=== PATIENT | female | born 1950 | race Caucasian/White ===

== ENCOUNTER 2019-11-06 15:46 | Inpatient (IN) | payer MEDICARE ==
[~2019-11-06] VITALS: Ht 165.1 cm; Wt 85.3 kg
[2019-11-06] MEDS ORDERED: ACETAMINOPHEN 325 MG TABLET PO PRN (22:30)
[2019-11-06] MEDS ORDERED: DEXTROSE 50%-WATER 25 GM/50 ML SYRINGE IVP PRN (22:30)
[2019-11-06 23:50] VITALS: BP 151/82
[2019-11-07] MEDS ORDERED: NIFE90TA49 PO (04:40)
[2019-11-07] MEDS ORDERED: TICA90TA PO (04:40)
[2019-11-07] MEDS ORDERED: FURO40 PO (04:40)
[2019-11-07] MEDS ORDERED: LISI-662 PO (04:40)
[2019-11-07] MEDS ORDERED: ISOS10TA16 PO (04:40)
[2019-11-07] MEDS ORDERED: METO25 PO (04:40)
[2019-11-07] MEDS ORDERED: METF-960 PO ×2 (04:40→16:16)
[2019-11-07] MEDS ORDERED: ATOR20TA86 PO (04:40)
[2019-11-07] MEDS: PANTOPRAZOLE SODIUM 40 MG DR TABLET PO SCH (05:23)
[2019-11-07 05:42] LABS: GLUCOMETER DEV NAME(LOC) 6N.1; GLUCOSE,POINT OF CARE 214 MG/DL (70-110)
[2019-11-07 06:50] LABS: BASOPHILS % (AUTO) 0.4 % (0.0-2.0); EOSINOPHILS % (AUTO) 0.7 % (1.0-6.0); HEMATOCRIT 36.9 % (36-46); HEMOGLOBIN 12.6 g/dL (12.0-16.0); LYMPHOCYTES # (AUTO) 1.4 K/uL (1.0-4.8); MEAN CORPUSCULAR HEMOGLOBIN 32.3 pg (26.0-34.0); MEAN CORPUSCULAR HGB CONC 34.1 G/dL (31.0-37.0); MEAN CORPUSCULAR VOLUME 95 fL (80-100); MONOCYTES # (AUTO) 0.8 K/uL (0.1-1.0); MONOCYTES % (AUTO) 9.2 % (2.0-9.0); NEUTROPHILS # (AUTO) 6.6 K/uL (1.8-7.7); NEUTROPHILS % (AUTO) 73.7 % (40.0-70.0); PLATELET COUNT (AUTO) 110 K/uL (150-450); RED CELL DISTRIBUTION WIDTH 13.2 % (11.5-14.5)
[2019-11-07 07:05] LABS: ALBUMIN 2.6 g/dL (3.4-5.0); BILIRUBIN,TOTAL 0.5 mg/dL (0.1-1.0); CREATININE 0.95 mg/dL (0.60-1.30); POTASSIUM 3.5 mmol/L (3.5-5.1); TOTAL PROTEIN, SERUM 7.5 g/dL (6.4-8.2)
[2019-11-07 09:00] VITALS: BP 162/95
[2019-11-07] MEDS: METOPROLOL TARTRATE 25 MG TABLET PO SCH ×2 (09:07→21:00)
[2019-11-07] MEDS: TICAGRELOR 90 MG TABLET PO SCH ×2 (09:07→21:02)
[2019-11-07] MEDS: DOCUSATE SODIUM 100 MG CAPSULE PO SCH ×2 (09:07→21:00)
[2019-11-07] MEDS: ISOSORBIDE MONONITRATE 60 MG ER TABLET PO SCH (09:07)
[2019-11-07] MEDS: ENOXAPARIN SODIUM 40 MG/0.4 ML PF SYRINGE SQ SCH (09:09)
[2019-11-07] MEDS: INSULIN LISPRO 100 UNITS/ML SQ PRN ×4 (09:10→21:00)
[2019-11-07 10:30] VITALS: BP 158/82
[2019-11-07 12:41] LABS: GLUCOMETER DEV NAME(LOC) 4E.2; GLUCOSE,POINT OF CARE 194 MG/DL (70-110)
[2019-11-07 13:54] LABS: C.DIFF GDH ANTIGEN, Stool Negative (Negative); C.DIFF TOXINS A&B, Stool Negative (Negative)
[2019-11-07 15:06] VITALS: BP 162/83
[2019-11-07 15:45] VITALS: BP 156/81
[2019-11-07] MEDS ORDERED: METO25XL PO (15:51)
[2019-11-07] MEDS ORDERED: ISOS60TA4 PO (15:51)
[2019-11-07] MEDS ORDERED: HydrALAZINE HCL 25 MG TABLET PO PRN (16:00)
[2019-11-07] MEDS: LISINOPRIL 20 MG TABLET PO SCH (17:12)
[2019-11-07 17:58] LABS: GLUCOMETER DEV NAME(LOC) 6N.1; GLUCOSE,POINT OF CARE 185 MG/DL (70-110)
[2019-11-07] MEDS: MetFORMIN HCL 500 MG TABLET PO SCH (18:56)
[2019-11-07 20:58] VITALS: BP 157/85
[2019-11-07] MEDS: SENNA 187 MG TABLET PO SCH (21:00)
[2019-11-07] MEDS: ATORVASTATIN CALCIUM 40 MG TABLET PO SCH (21:07)
[2019-11-07] MEDS: NYSTATIN 15 GM POWDER BOTTLE TP SCH (21:10)
[2019-11-07 21:24] LABS: GLUCOMETER DEV NAME(LOC) 6N.1; GLUCOSE,POINT OF CARE 166 MG/DL (70-110)
[2019-11-07 23:38] VITALS: BP 154/83
[2019-11-08 05:29] LABS: GLUCOMETER DEV NAME(LOC) 6N.1; GLUCOSE,POINT OF CARE 156 MG/DL (70-110)
[2019-11-08] MEDS: PANTOPRAZOLE SODIUM 40 MG DR TABLET PO SCH (05:33)
[2019-11-08] MEDS: MetFORMIN HCL 500 MG TABLET PO SCH ×2 (07:46→17:29)
[2019-11-08] MEDS: INSULIN LISPRO 100 UNITS/ML SQ PRN ×3 (07:48→21:14)
[2019-11-08 08:30] VITALS: BP 154/79
[2019-11-08] MEDS: ENOXAPARIN SODIUM 40 MG/0.4 ML PF SYRINGE SQ SCH (08:43)
[2019-11-08] MEDS: NYSTATIN 15 GM POWDER BOTTLE TP SCH ×2 (08:44→20:53)
[2019-11-08] MEDS: ISOSORBIDE MONONITRATE 60 MG ER TABLET PO SCH (08:44)
[2019-11-08] MEDS: LISINOPRIL 20 MG TABLET PO SCH (08:44)
[2019-11-08] MEDS: TICAGRELOR 90 MG TABLET PO SCH ×2 (08:44→20:53)
[2019-11-08] MEDS: METOPROLOL TARTRATE 25 MG TABLET PO SCH ×2 (08:44→20:53)
[2019-11-08] MEDS: DOCUSATE SODIUM 100 MG CAPSULE PO SCH ×2 (08:44→20:53)
[2019-11-08] MEDS ORDERED: IBUPROFEN 600 MG TABLET PO PRN (11:30)
[2019-11-08 15:46] VITALS: BP 147/63
[2019-11-08 20:32] LABS: GLUCOMETER DEV NAME(LOC) 4E.2; GLUCOSE,POINT OF CARE 190 MG/DL (70-110)
[2019-11-08] MEDS: ATORVASTATIN CALCIUM 40 MG TABLET PO SCH (20:53)
[2019-11-08] MEDS: SENNA 187 MG TABLET PO SCH (20:53)
[2019-11-08 21:00] VITALS: BP 150/73
[2019-11-08] MEDS ORDERED: NYSTATIN 15 GM POWDER BOTTLE TP SCH (21:00)
[2019-11-08 22:40] LABS: GLUCOMETER DEV NAME(LOC) 4E.2; GLUCOSE,POINT OF CARE 166 MG/DL (70-110)
[2019-11-09] VITALS: BP 132/77
[2019-11-09 05:21] LABS: GLUCOMETER DEV NAME(LOC) 6N.1; GLUCOSE,POINT OF CARE 179 MG/DL (70-110)
[2019-11-09 06:07] LABS: GLUCOMETER DEV NAME(LOC) 6N.1; GLUCOSE,POINT OF CARE 174 MG/DL (70-110)
[2019-11-09] MEDS: PANTOPRAZOLE SODIUM 40 MG DR TABLET PO SCH (06:42)
[2019-11-09 07:29] LABS: BASOPHILS % (AUTO) 0.5 % (0.0-2.0); EOSINOPHILS % (AUTO) 4.9 % (1.0-6.0); HEMATOCRIT 33.1 % (36-46); HEMOGLOBIN 11.3 g/dL (12.0-16.0); LYMPHOCYTES # (AUTO) 1.6 K/uL (1.0-4.8); LYMPHOCYTES % (AUTO) 22.1 % (22.0-44.0); MEAN CORPUSCULAR HEMOGLOBIN 32.7 pg (26.0-34.0); MEAN CORPUSCULAR HGB CONC 34.2 G/dL (31.0-37.0); MEAN CORPUSCULAR VOLUME 96 fL (80-100); MONOCYTES # (AUTO) 0.6 K/uL (0.1-1.0); MONOCYTES % (AUTO) 8.8 % (2.0-9.0); NEUTROPHILS # (AUTO) 4.5 K/uL (1.8-7.7); NEUTROPHILS % (AUTO) 63.7 % (40.0-70.0); PLATELET COUNT (AUTO) 105 K/uL (150-450); RED BLOOD CELL COUNT(AUTO) 3.46 MIL/uL (4.00-5.20); RED CELL DISTRIBUTION WIDTH 13.8 % (11.5-14.5)
[2019-11-09 07:30] VITALS: BP 137/72
[2019-11-09 07:43] LABS: CALCIUM, TOTAL 9.2 mg/dL (8.8-10.5); CREATININE 1.02 mg/dL (0.60-1.30); POTASSIUM 3.7 mmol/L (3.5-5.1)
[2019-11-09] MEDS: INSULIN LISPRO 100 UNITS/ML SQ PRN ×3 (07:47→20:37)
[2019-11-09 08:38] VITALS: BP 140/79
[2019-11-09] MEDS: NYSTATIN 15 GM POWDER BOTTLE TP SCH ×2 (08:38→20:34)
[2019-11-09] MEDS: METOPROLOL TARTRATE 25 MG TABLET PO SCH ×2 (08:38→20:34)
[2019-11-09] MEDS: ENOXAPARIN SODIUM 40 MG/0.4 ML PF SYRINGE SQ SCH (08:39)
[2019-11-09] MEDS: LISINOPRIL 20 MG TABLET PO SCH (08:39)
[2019-11-09] MEDS: ISOSORBIDE MONONITRATE 60 MG ER TABLET PO SCH (08:39)
[2019-11-09] MEDS: DOCUSATE SODIUM 100 MG CAPSULE PO SCH ×2 (08:39→20:34)
[2019-11-09] MEDS: MetFORMIN HCL 500 MG TABLET PO SCH ×2 (08:39→17:50)
[2019-11-09] MEDS: TICAGRELOR 90 MG TABLET PO SCH ×2 (08:39→20:34)
[2019-11-09 15:00] VITALS: BP 147/75
[2019-11-09 18:27] LABS: GLUCOMETER DEV NAME(LOC) 4E.2; GLUCOSE,POINT OF CARE 139 MG/DL (70-110)
[2019-11-09 20:00] VITALS: BP 137/85
[2019-11-09] MEDS: SENNA 187 MG TABLET PO SCH (20:34)
[2019-11-09] MEDS: ATORVASTATIN CALCIUM 40 MG TABLET PO SCH (20:34)
[2019-11-09 21:00] LABS: GLUCOMETER DEV NAME(LOC) 6N.1; GLUCOSE,POINT OF CARE 181 MG/DL (70-110)
[2019-11-09 21:01] LABS: GLUCOMETER DEV NAME(LOC) 6N.1; GLUCOSE,POINT OF CARE 172 MG/DL (70-110)
[2019-11-10] MEDS ORDERED: DOCUSATE SODIUM 283 MG/5 ML MINI-ENEMA PR PRN (01:30)
[2019-11-10] MEDS: PANTOPRAZOLE SODIUM 40 MG DR TABLET PO SCH (06:24)
[2019-11-10 06:25] LABS: GLUCOMETER DEV NAME(LOC) 4E.2; GLUCOSE,POINT OF CARE 176 MG/DL (70-110)
[2019-11-10 07:10] VITALS: BP 157/90
[2019-11-10] MEDS: MetFORMIN HCL 500 MG TABLET PO SCH ×2 (08:08→17:37)
[2019-11-10] MEDS: METOPROLOL TARTRATE 25 MG TABLET PO SCH ×2 (08:08→20:33)
[2019-11-10] MEDS: ISOSORBIDE MONONITRATE 60 MG ER TABLET PO SCH (08:08)
[2019-11-10] MEDS: LISINOPRIL 20 MG TABLET PO SCH (08:08)
[2019-11-10] MEDS: ENOXAPARIN SODIUM 40 MG/0.4 ML PF SYRINGE SQ SCH (08:09)
[2019-11-10] MEDS: DOCUSATE SODIUM 100 MG CAPSULE PO SCH ×2 (08:09→20:33)
[2019-11-10] MEDS: TICAGRELOR 90 MG TABLET PO SCH ×2 (08:09→20:33)
[2019-11-10] MEDS: NYSTATIN 15 GM POWDER BOTTLE TP SCH ×2 (08:10→20:57)
[2019-11-10 09:20] LABS: ANION GAP 11 mmol/L (8-16); CALCIUM, TOTAL 9.4 mg/dL (8.8-10.5); CARBON DIOXIDE 23 mmol/L (22-29); CHLORIDE 107 mmol/L (98-107); CREATININE 0.82 mg/dL (0.60-1.30); GLOMERULAR FILTR. RATE CALC > 60 mL/min (>60); GLUCOSE,RANDOM 165 mg/dL (70-110); POTASSIUM 3.8 mmol/L (3.5-5.1); SODIUM SERUM 141 mmol/L (136-145); UREA NITROGEN, BLOOD 33 mg/dL (7-18)
[2019-11-10] MEDS: INSULIN LISPRO 100 UNITS/ML SQ PRN ×4 (09:37→21:49)
[2019-11-10 12:20] VITALS: BP 147/91
[2019-11-10 12:55] LABS: GLUCOMETER DEV NAME(LOC) 4E.2; GLUCOSE,POINT OF CARE 141 MG/DL (70-110)
[2019-11-10 15:10] VITALS: BP 136/78
[2019-11-10 17:18] LABS: GLUCOMETER DEV NAME(LOC) 6N.1; GLUCOSE,POINT OF CARE 146 MG/DL (70-110)
[2019-11-10 20:30] VITALS: BP 148/72
[2019-11-10] MEDS: SENNA 187 MG TABLET PO SCH (20:33)
[2019-11-10] MEDS: ATORVASTATIN CALCIUM 40 MG TABLET PO SCH (20:33)
[2019-11-10 22:03] LABS: GLUCOMETER DEV NAME(LOC) 4E.2; GLUCOSE,POINT OF CARE 170 MG/DL (70-110)
[2019-11-10 22:05] VITALS: BP 143/74
[2019-11-11 00:37] VITALS: BP 150/71
[2019-11-11] MEDS: PANTOPRAZOLE SODIUM 40 MG DR TABLET PO SCH (05:26)
[2019-11-11 06:36] LABS: GLUCOMETER DEV NAME(LOC) 4E.2; GLUCOSE,POINT OF CARE 175 MG/DL (70-110)
[2019-11-11 07:21] VITALS: BP 139/69
[2019-11-11] MEDS: MetFORMIN HCL 500 MG TABLET PO SCH (07:59)
[2019-11-11] MEDS: TICAGRELOR 90 MG TABLET PO SCH ×2 (08:00→20:32)
[2019-11-11] MEDS: METOPROLOL TARTRATE 25 MG TABLET PO SCH ×2 (08:00→20:32)
[2019-11-11] MEDS: ENOXAPARIN SODIUM 40 MG/0.4 ML PF SYRINGE SQ SCH (08:00)
[2019-11-11] MEDS: LISINOPRIL 20 MG TABLET PO SCH (08:01)
[2019-11-11] MEDS: ISOSORBIDE MONONITRATE 60 MG ER TABLET PO SCH (08:01)
[2019-11-11] MEDS: DOCUSATE SODIUM 100 MG CAPSULE PO SCH (08:01)
[2019-11-11] MEDS: INSULIN LISPRO 100 UNITS/ML SQ PRN (08:07)
[2019-11-11] MEDS: NYSTATIN 15 GM POWDER BOTTLE TP SCH ×2 (08:08→20:33)
[2019-11-11 14:28] LABS: BASOPHILS % (AUTO) 0.6 % (0.0-2.0); EOSINOPHILS % (AUTO) 3.5 % (1.0-6.0); HEMATOCRIT 32.6 % (36-46); HEMOGLOBIN 10.9 g/dL (12.0-16.0); LYMPHOCYTES # (AUTO) 1.1 K/uL (1.0-4.8); MEAN CORPUSCULAR HEMOGLOBIN 31.7 pg (26.0-34.0); MEAN CORPUSCULAR HGB CONC 33.4 G/dL (31.0-37.0); MEAN CORPUSCULAR VOLUME 95 fL (80-100); MONOCYTES # (AUTO) 0.7 K/uL (0.1-1.0); MONOCYTES % (AUTO) 9.5 % (2.0-9.0); NEUTROPHILS # (AUTO) 5.3 K/uL (1.8-7.7); NEUTROPHILS % (AUTO) 71.4 % (40.0-70.0); PLATELET COUNT (AUTO) 122 K/uL (150-450); RED BLOOD CELL COUNT(AUTO) 3.43 MIL/uL (4.00-5.20); RED CELL DISTRIBUTION WIDTH 13.4 % (11.5-14.5)
[2019-11-11 15:01] LABS: CALCIUM, TOTAL 9.1 mg/dL (8.8-10.5); CREATININE 0.97 mg/dL (0.60-1.30); POTASSIUM 4.1 mmol/L (3.5-5.1)
[2019-11-11 15:03] LABS: GLUCOMETER DEV NAME(LOC) 6N.1; GLUCOSE,POINT OF CARE 126 MG/DL (70-110)
[2019-11-11 15:04] LABS: MAGNESIUM 1.5 mg/dL (1.80-2.40); PHOSPHORUS 3.1 mg/dL (2.5-4.9)
[2019-11-11 15:23] VITALS: BP 151/69
[2019-11-11 17:47] LABS: GLUCOMETER DEV NAME(LOC) 4E.2; GLUCOSE,POINT OF CARE 139 MG/DL (70-110)
[2019-11-11] MEDS: MetFORMIN HCL 850 MG TABLET PO SCH (17:58)
[2019-11-11] MEDS ORDERED: MAGNESIUM OXIDE 400 MG TABLET PO ONE (19:45)
[2019-11-11 20:30] VITALS: BP 138/69
[2019-11-11] MEDS: ATORVASTATIN CALCIUM 40 MG TABLET PO SCH (20:32)
[2019-11-11 21:07] LABS: GLUCOMETER DEV NAME(LOC) 4E.2; GLUCOSE,POINT OF CARE 139 MG/DL (70-110)
[2019-11-11 21:45] VITALS: BP 139/74
[2019-11-11 23:50] VITALS: BP 114/69
[2019-11-12] MEDS: PANTOPRAZOLE SODIUM 40 MG DR TABLET PO SCH (06:05)
[2019-11-12 06:30] LABS: GLUCOMETER DEV NAME(LOC) 6N.1; GLUCOSE,POINT OF CARE 139 MG/DL (70-110)
[2019-11-12 07:30] VITALS: BP 132/62
[2019-11-12 07:32] LABS: ANION GAP 13 mmol/L (8-16); CALCIUM, TOTAL 9.1 mg/dL (8.8-10.5); CARBON DIOXIDE 22 mmol/L (22-29); CHLORIDE 105 mmol/L (98-107); GLOMERULAR FILTR. RATE CALC > 60 mL/min (>60); GLUCOSE,RANDOM 126 mg/dL (70-110); POTASSIUM 3.8 mmol/L (3.5-5.1); SODIUM SERUM 140 mmol/L (136-145); UREA NITROGEN, BLOOD 29 mg/dL (7-18)
[2019-11-12] MEDS: MetFORMIN HCL 850 MG TABLET PO SCH ×2 (08:30→17:37)
[2019-11-12] MEDS: MULTIVITAMINS WITH MINERALS, THERAPEUTIC TABLET PO SCH (08:35)
[2019-11-12] MEDS: MAGNESIUM OXIDE 400 MG TABLET PO SCH ×2 (08:35→20:02)
[2019-11-12] MEDS: METOPROLOL TARTRATE 25 MG TABLET PO SCH ×2 (08:35→20:02)
[2019-11-12] MEDS: TICAGRELOR 90 MG TABLET PO SCH ×2 (08:35→20:01)
[2019-11-12] MEDS: ISOSORBIDE MONONITRATE 60 MG ER TABLET PO SCH ×2 (08:35→09:33)
[2019-11-12] MEDS: LISINOPRIL 20 MG TABLET PO SCH (08:35)
[2019-11-12 09:30] VITALS: BP 139/66
[2019-11-12] MEDS: NYSTATIN 15 GM POWDER BOTTLE TP SCH ×2 (09:34→20:02)
[2019-11-12] MEDS: ENOXAPARIN SODIUM 40 MG/0.4 ML PF SYRINGE SQ SCH (09:34)
[2019-11-12 13:00] VITALS: BP 130/67
[2019-11-12 14:45] LABS: GLUCOMETER DEV NAME(LOC) 4E.2; GLUCOSE,POINT OF CARE 134 MG/DL (70-110)
[2019-11-12 15:17] VITALS: BP 125/55
[2019-11-12] MEDS: INSULIN LISPRO 100 UNITS/ML SQ PRN (18:02)
[2019-11-12 18:45] LABS: GLUCOMETER DEV NAME(LOC) 4E.2; GLUCOSE,POINT OF CARE 148 MG/DL (70-110)
[2019-11-12] MEDS: ATORVASTATIN CALCIUM 40 MG TABLET PO SCH (20:01)
[2019-11-12 20:31] LABS: GLUCOMETER DEV NAME(LOC) 6N.1; GLUCOSE,POINT OF CARE 138 MG/DL (70-110)
[2019-11-12 23:26] VITALS: BP 139/70
[2019-11-13] MEDS: PANTOPRAZOLE SODIUM 40 MG DR TABLET PO SCH (05:23)
[2019-11-13 05:35] LABS: GLUCOMETER DEV NAME(LOC) 4E.2; GLUCOSE,POINT OF CARE 151 MG/DL (70-110)
[2019-11-13 07:16] VITALS: BP 135/62
[2019-11-13] MEDS: INSULIN LISPRO 100 UNITS/ML SQ PRN ×3 (07:42→20:45)
[2019-11-13] MEDS: MetFORMIN HCL 850 MG TABLET PO SCH ×2 (08:17→17:41)
[2019-11-13 11:47] LABS: GLUCOMETER DEV NAME(LOC) 4E.2; GLUCOSE,POINT OF CARE 129 MG/DL (70-110)
[2019-11-13] MEDS: TICAGRELOR 90 MG TABLET PO SCH ×2 (11:48→20:31)
[2019-11-13] MEDS: ISOSORBIDE MONONITRATE 60 MG ER TABLET PO SCH (11:48)
[2019-11-13] MEDS: METOPROLOL TARTRATE 25 MG TABLET PO SCH ×2 (11:48→20:31)
[2019-11-13] MEDS: MULTIVITAMINS WITH MINERALS, THERAPEUTIC TABLET PO SCH (11:48)
[2019-11-13] MEDS: LISINOPRIL 20 MG TABLET PO SCH (11:48)
[2019-11-13] MEDS: NYSTATIN 15 GM POWDER BOTTLE TP SCH ×2 (11:48→20:31)
[2019-11-13] MEDS: ENOXAPARIN SODIUM 40 MG/0.4 ML PF SYRINGE SQ SCH (11:48)
[2019-11-13] MEDS: MAGNESIUM OXIDE 400 MG TABLET PO SCH ×2 (11:48→20:31)
[2019-11-13] MEDS: LACTOBAC ACID/BULG/BIFID/THERM TABLET PO SCH ×2 (13:21→20:31)
[2019-11-13 15:08] VITALS: BP 127/66
[2019-11-13 17:57] LABS: GLUCOMETER DEV NAME(LOC) 4E.2; GLUCOSE,POINT OF CARE 146 MG/DL (70-110)
[2019-11-13] MEDS: ATORVASTATIN CALCIUM 40 MG TABLET PO SCH (20:31)
[2019-11-13] MEDS: FAMOTIDINE 20 MG TABLET PO SCH (20:31)
[2019-11-13 23:13] VITALS: BP 142/72
[2019-11-14 04:58] LABS: GLUCOMETER DEV NAME(LOC) 6N.1; GLUCOSE,POINT OF CARE 148 MG/DL (70-110)
[2019-11-14 06:47] LABS: GLUCOMETER DEV NAME(LOC) 4E.2; GLUCOSE,POINT OF CARE 123 MG/DL (70-110)
[2019-11-14 07:02] VITALS: BP 141/71
[2019-11-14 07:29] LABS: ANION GAP 8 mmol/L (8-16); CALCIUM, TOTAL 9.1 mg/dL (8.8-10.5); CARBON DIOXIDE 24 mmol/L (22-29); CHLORIDE 108 mmol/L (98-107); CREATININE 0.77 mg/dL (0.60-1.30); GLOMERULAR FILTR. RATE CALC > 60 mL/min (>60); GLUCOSE,RANDOM 134 mg/dL (70-110); POTASSIUM 4.2 mmol/L (3.5-5.1); SODIUM SERUM 140 mmol/L (136-145); UREA NITROGEN, BLOOD 29 mg/dL (7-18)
[2019-11-14] MEDS: LACTOBAC ACID/BULG/BIFID/THERM TABLET PO SCH ×2 (07:42→20:13)
[2019-11-14] MEDS: ENOXAPARIN SODIUM 40 MG/0.4 ML PF SYRINGE SQ SCH (07:42)
[2019-11-14] MEDS: TICAGRELOR 90 MG TABLET PO SCH ×2 (07:43→20:13)
[2019-11-14] MEDS: METOPROLOL TARTRATE 25 MG TABLET PO SCH ×2 (07:43→20:14)
[2019-11-14] MEDS: MAGNESIUM OXIDE 400 MG TABLET PO SCH ×2 (07:43→20:14)
[2019-11-14] MEDS: MULTIVITAMINS WITH MINERALS, THERAPEUTIC TABLET PO SCH (07:43)
[2019-11-14] MEDS: MetFORMIN HCL 850 MG TABLET PO SCH (07:43)
[2019-11-14] MEDS: LISINOPRIL 20 MG TABLET PO SCH (07:43)
[2019-11-14] MEDS: FAMOTIDINE 20 MG TABLET PO SCH ×2 (07:43→20:13)
[2019-11-14] MEDS: ISOSORBIDE MONONITRATE 60 MG ER TABLET PO SCH (07:44)
[2019-11-14] MEDS: NYSTATIN 15 GM POWDER BOTTLE TP SCH ×2 (07:44→20:14)
[2019-11-14] MEDS: SitaGLIPtin PHOSPHATE 50 MG TABLET PO SCH (12:54)
[2019-11-14 15:38] VITALS: BP 123/60
[2019-11-14 17:16] LABS: C.DIFF GDH ANTIGEN, Stool Negative (Negative); C.DIFF TOXINS A&B, Stool Negative (Negative)
[2019-11-14 17:46] LABS: GLUCOMETER DEV NAME(LOC) 4E.2; GLUCOSE,POINT OF CARE 88 MG/DL (70-110)
[2019-11-14] MEDS: ATORVASTATIN CALCIUM 40 MG TABLET PO SCH (20:13)
[2019-11-14 21:28] LABS: GLUCOMETER DEV NAME(LOC) 4E.2; GLUCOSE,POINT OF CARE 139 MG/DL (70-110)
[2019-11-14 23:34] VITALS: BP 131/59
[2019-11-15 05:56] LABS: GLUCOMETER DEV NAME(LOC) 4E.2; GLUCOSE,POINT OF CARE 119 MG/DL (70-110)
[2019-11-15 07:10] VITALS: BP 122/74
[2019-11-15] MEDS: FAMOTIDINE 20 MG TABLET PO SCH ×2 (07:54→20:39)
[2019-11-15] MEDS: ISOSORBIDE MONONITRATE 60 MG ER TABLET PO SCH (07:54)
[2019-11-15] MEDS: LACTOBAC ACID/BULG/BIFID/THERM TABLET PO SCH ×2 (07:54→20:39)
[2019-11-15] MEDS: ENOXAPARIN SODIUM 40 MG/0.4 ML PF SYRINGE SQ SCH (07:54)
[2019-11-15] MEDS: SitaGLIPtin PHOSPHATE 50 MG TABLET PO SCH (07:54)
[2019-11-15] MEDS: NYSTATIN 15 GM POWDER BOTTLE TP SCH ×2 (07:55→20:52)
[2019-11-15] MEDS: TICAGRELOR 90 MG TABLET PO SCH ×2 (07:55→20:39)
[2019-11-15] MEDS: MULTIVITAMINS WITH MINERALS, THERAPEUTIC TABLET PO SCH (07:55)
[2019-11-15] MEDS: LISINOPRIL 20 MG TABLET PO SCH (07:55)
[2019-11-15] MEDS: MAGNESIUM OXIDE 400 MG TABLET PO SCH (07:55)
[2019-11-15] MEDS: METOPROLOL TARTRATE 25 MG TABLET PO SCH ×2 (07:55→20:39)
[2019-11-15] MEDS: PSYLLIUM SEED ORANGE SF 5.8 GM/PACKET PO SCH ×2 (09:34→09:45)
[2019-11-15 12:14] LABS: GLUCOMETER DEV NAME(LOC) 4E.2; GLUCOSE,POINT OF CARE 135 MG/DL (70-110)
[2019-11-15 16:00] VITALS: BP 131/89
[2019-11-15 17:57] LABS: GLUCOMETER DEV NAME(LOC) 4E.2; GLUCOSE,POINT OF CARE 118 MG/DL (70-110)
[2019-11-15] MEDS: MAGNESIUM CHLORIDE 64 MG ER TABLET PO SCH (20:39)
[2019-11-15] MEDS: ATORVASTATIN CALCIUM 40 MG TABLET PO SCH (20:39)
[2019-11-15 20:40] VITALS: BP 126/54
[2019-11-15 21:57] LABS: GLUCOMETER DEV NAME(LOC) 4E.2; GLUCOSE,POINT OF CARE 131 MG/DL (70-110)
[2019-11-16] VITALS: BP 146/69
[2019-11-16 06:26] LABS: GLUCOMETER DEV NAME(LOC) 4E.2; GLUCOSE,POINT OF CARE 127 MG/DL (70-110)
[2019-11-16 08:00] VITALS: BP 149/67
[2019-11-16] MEDS: SitaGLIPtin PHOSPHATE 50 MG TABLET PO SCH (08:16)
[2019-11-16] MEDS: MAGNESIUM CHLORIDE 64 MG ER TABLET PO SCH ×2 (08:16→20:50)
[2019-11-16] MEDS: ENOXAPARIN SODIUM 40 MG/0.4 ML PF SYRINGE SQ SCH (08:16)
[2019-11-16] MEDS: PSYLLIUM SEED ORANGE SF 5.8 GM/PACKET PO SCH ×2 (08:16)
[2019-11-16] MEDS: FAMOTIDINE 20 MG TABLET PO SCH ×2 (08:16→20:51)
[2019-11-16] MEDS: MULTIVITAMINS WITH MINERALS, THERAPEUTIC TABLET PO SCH (08:17)
[2019-11-16] MEDS: LISINOPRIL 20 MG TABLET PO SCH (08:17)
[2019-11-16] MEDS: TICAGRELOR 90 MG TABLET PO SCH ×2 (08:17→20:51)
[2019-11-16] MEDS: METOPROLOL TARTRATE 25 MG TABLET PO SCH ×2 (08:17→20:51)
[2019-11-16] MEDS: LACTOBAC ACID/BULG/BIFID/THERM TABLET PO SCH ×2 (08:17→20:50)
[2019-11-16] MEDS: ISOSORBIDE MONONITRATE 60 MG ER TABLET PO SCH (08:17)
[2019-11-16] MEDS: NYSTATIN 15 GM POWDER BOTTLE TP SCH ×2 (08:18→20:56)
[2019-11-16 13:50] LABS: GLUCOMETER DEV NAME(LOC) 4E.2; GLUCOSE,POINT OF CARE 117 MG/DL (70-110)
[2019-11-16 16:30] VITALS: BP 132/63
[2019-11-16 18:23] LABS: GLUCOMETER DEV NAME(LOC) 4E.2; GLUCOSE,POINT OF CARE 116 MG/DL (70-110)
[2019-11-16 20:30] VITALS: BP 154/65
[2019-11-16] MEDS: SENNA 187 MG TABLET PO PRN (20:50)
[2019-11-16] MEDS: DOCUSATE SODIUM 100 MG CAPSULE PO PRN (20:51)
[2019-11-16] MEDS: ATORVASTATIN CALCIUM 40 MG TABLET PO SCH (21:31)
[2019-11-16 21:33] LABS: GLUCOMETER DEV NAME(LOC) 4E.2; GLUCOSE,POINT OF CARE 126 MG/DL (70-110)
[2019-11-16 23:13] VITALS: BP 139/60
[2019-11-17 05:34] LABS: GLUCOMETER DEV NAME(LOC) 6N.1; GLUCOSE,POINT OF CARE 122 MG/DL (70-110)
[2019-11-17 07:20] LABS: BASOPHILS % (AUTO) 0.9 % (0.0-2.0); EOSINOPHILS % (AUTO) 4.5 % (1.0-6.0); HEMATOCRIT 31.3 % (36-46); HEMOGLOBIN 10.3 g/dL (12.0-16.0); LYMPHOCYTES # (AUTO) 1.3 K/uL (1.0-4.8); LYMPHOCYTES % (AUTO) 21.2 % (22.0-44.0); MEAN CORPUSCULAR HEMOGLOBIN 31.3 pg (26.0-34.0); MEAN CORPUSCULAR HGB CONC 32.9 G/dL (31.0-37.0); MEAN CORPUSCULAR VOLUME 95 fL (80-100); MONOCYTES # (AUTO) 0.6 K/uL (0.1-1.0); MONOCYTES % (AUTO) 9.5 % (2.0-9.0); NEUTROPHILS % (AUTO) 63.9 % (40.0-70.0); PLATELET COUNT (AUTO) 132 K/uL (150-450); RED BLOOD CELL COUNT(AUTO) 3.29 MIL/uL (4.00-5.20); RED CELL DISTRIBUTION WIDTH 13.2 % (11.5-14.5)
[2019-11-17 07:50] LABS: ANION GAP 9 mmol/L (8-16); CARBON DIOXIDE 25 mmol/L (22-29); CHLORIDE 108 mmol/L (98-107); CREATININE 0.72 mg/dL (0.60-1.30); GLOMERULAR FILTR. RATE CALC > 60 mL/min (>60); GLUCOSE,RANDOM 131 mg/dL (70-110); POTASSIUM 3.9 mmol/L (3.5-5.1); SODIUM SERUM 142 mmol/L (136-145); UREA NITROGEN, BLOOD 23 mg/dL (7-18)
[2019-11-17] MEDS: ENOXAPARIN SODIUM 40 MG/0.4 ML PF SYRINGE SQ SCH (08:29)
[2019-11-17] MEDS: FAMOTIDINE 20 MG TABLET PO SCH ×2 (08:29→21:20)
[2019-11-17 08:30] VITALS: BP 153/61
[2019-11-17] MEDS: LISINOPRIL 20 MG TABLET PO SCH (08:30)
[2019-11-17] MEDS: MAGNESIUM CHLORIDE 64 MG ER TABLET PO SCH ×2 (08:30→21:20)
[2019-11-17] MEDS: MULTIVITAMINS WITH MINERALS, THERAPEUTIC TABLET PO SCH (08:30)
[2019-11-17] MEDS: LACTOBAC ACID/BULG/BIFID/THERM TABLET PO SCH ×2 (08:30→21:21)
[2019-11-17] MEDS: SitaGLIPtin PHOSPHATE 50 MG TABLET PO SCH (08:30)
[2019-11-17] MEDS: ISOSORBIDE MONONITRATE 60 MG ER TABLET PO SCH (08:31)
[2019-11-17] MEDS: PSYLLIUM SEED ORANGE SF 5.8 GM/PACKET PO SCH (08:31)
[2019-11-17] MEDS: METOPROLOL TARTRATE 25 MG TABLET PO SCH ×2 (08:31→21:20)
[2019-11-17] MEDS: TICAGRELOR 90 MG TABLET PO SCH ×2 (08:31→21:21)
[2019-11-17] MEDS: NYSTATIN 15 GM POWDER BOTTLE TP SCH ×2 (08:32→21:20)
[2019-11-17 12:19] LABS: GLUCOMETER DEV NAME(LOC) 6N.1; GLUCOSE,POINT OF CARE 138 MG/DL (70-110)
[2019-11-17 15:50] VITALS: BP 135/55
[2019-11-17 18:01] LABS: GLUCOMETER DEV NAME(LOC) 4E.2; GLUCOSE,POINT OF CARE 127 MG/DL (70-110)
[2019-11-17] MEDS: ATORVASTATIN CALCIUM 40 MG TABLET PO SCH (21:20)
[2019-11-17 21:24] LABS: GLUCOMETER DEV NAME(LOC) 4E.2; GLUCOSE,POINT OF CARE 188 MG/DL (70-110)
[2019-11-17] MEDS: INSULIN LISPRO 100 UNITS/ML SQ PRN (21:24)
[2019-11-17 23:30] VITALS: BP 158/61
[2019-11-18 06:04] LABS: GLUCOMETER DEV NAME(LOC) 6N.1; GLUCOSE,POINT OF CARE 121 MG/DL (70-110)
[2019-11-18 07:40] VITALS: BP 157/61
[2019-11-18] MEDS: ENOXAPARIN SODIUM 40 MG/0.4 ML PF SYRINGE SQ SCH (09:16)
[2019-11-18] MEDS: PSYLLIUM SEED ORANGE SF 5.8 GM/PACKET PO SCH (09:16)
[2019-11-18] MEDS: FAMOTIDINE 20 MG TABLET PO SCH ×2 (09:16→20:43)
[2019-11-18] MEDS: LACTOBAC ACID/BULG/BIFID/THERM TABLET PO SCH ×2 (09:16→20:44)
[2019-11-18] MEDS: TICAGRELOR 90 MG TABLET PO SCH ×2 (09:17→20:44)
[2019-11-18] MEDS: MULTIVITAMINS WITH MINERALS, THERAPEUTIC TABLET PO SCH (09:17)
[2019-11-18] MEDS: SitaGLIPtin PHOSPHATE 50 MG TABLET PO SCH (09:17)
[2019-11-18] MEDS: NYSTATIN 15 GM POWDER BOTTLE TP SCH ×2 (09:17→20:44)
[2019-11-18] MEDS: MAGNESIUM CHLORIDE 64 MG ER TABLET PO SCH ×2 (09:17→20:43)
[2019-11-18] MEDS: ISOSORBIDE MONONITRATE 60 MG ER TABLET PO SCH (09:17)
[2019-11-18] MEDS: METOPROLOL TARTRATE 25 MG TABLET PO SCH ×2 (09:17→20:43)
[2019-11-18] MEDS: LISINOPRIL 20 MG TABLET PO SCH (09:17)
[2019-11-18 12:01] LABS: GLUCOMETER DEV NAME(LOC) 6N.1; GLUCOSE,POINT OF CARE 129 MG/DL (70-110)
[2019-11-18 15:14] VITALS: BP 146/72
[2019-11-18 17:09] LABS: GLUCOMETER DEV NAME(LOC) 6N.1; GLUCOSE,POINT OF CARE 127 MG/DL (70-110)
[2019-11-18] MEDS: DOCUSATE SODIUM 100 MG CAPSULE PO PRN (20:43)
[2019-11-18] MEDS: SENNA 187 MG TABLET PO PRN (20:43)
[2019-11-18] MEDS: ATORVASTATIN CALCIUM 40 MG TABLET PO SCH (20:55)
[2019-11-18 21:00] VITALS: BP 155/64
[2019-11-18] MEDS: INSULIN LISPRO 100 UNITS/ML SQ PRN (22:09)
[2019-11-18 23:16] VITALS: BP 150/65
[2019-11-18 23:34] LABS: GLUCOMETER DEV NAME(LOC) 6N.1; GLUCOSE,POINT OF CARE 144 MG/DL (70-110)
[2019-11-19 06:07] LABS: GLUCOMETER DEV NAME(LOC) 4E.2; GLUCOSE,POINT OF CARE 135 MG/DL (70-110)
[2019-11-19 07:15] VITALS: BP 148/69
[2019-11-19] MEDS: LACTOBAC ACID/BULG/BIFID/THERM TABLET PO SCH ×2 (08:12→20:34)
[2019-11-19] MEDS: MAGNESIUM CHLORIDE 64 MG ER TABLET PO SCH ×2 (08:13→20:35)
[2019-11-19] MEDS: ISOSORBIDE MONONITRATE 60 MG ER TABLET PO SCH (08:14)
[2019-11-19] MEDS: SitaGLIPtin PHOSPHATE 50 MG TABLET PO SCH (08:14)
[2019-11-19] MEDS: MULTIVITAMINS WITH MINERALS, THERAPEUTIC TABLET PO SCH (08:15)
[2019-11-19] MEDS: FAMOTIDINE 20 MG TABLET PO SCH ×2 (08:15→20:34)
[2019-11-19] MEDS: LISINOPRIL 20 MG TABLET PO SCH (08:15)
[2019-11-19] MEDS: METOPROLOL TARTRATE 25 MG TABLET PO SCH ×2 (08:15→20:35)
[2019-11-19] MEDS: PSYLLIUM SEED ORANGE SF 5.8 GM/PACKET PO SCH (08:15)
[2019-11-19] MEDS: TICAGRELOR 90 MG TABLET PO SCH ×2 (08:16→20:35)
[2019-11-19] MEDS: ENOXAPARIN SODIUM 40 MG/0.4 ML PF SYRINGE SQ SCH (08:16)
[2019-11-19] MEDS: NYSTATIN 15 GM POWDER BOTTLE TP SCH ×2 (08:16→20:36)
[2019-11-19 15:44] LABS: GLUCOMETER DEV NAME(LOC) 6N.1; GLUCOSE,POINT OF CARE 148 MG/DL (70-110)
[2019-11-19 16:06] VITALS: BP 148/72
[2019-11-19 20:24] LABS: GLUCOMETER DEV NAME(LOC) 6N.1; GLUCOSE,POINT OF CARE 117 MG/DL (70-110)
[2019-11-19] MEDS: ATORVASTATIN CALCIUM 40 MG TABLET PO SCH (20:34)
[2019-11-19 23:23] LABS: GLUCOMETER DEV NAME(LOC) 6N.1; GLUCOSE,POINT OF CARE 140 MG/DL (70-110)
[2019-11-20 00:53] VITALS: BP 141/64
[2019-11-20 06:15] LABS: GLUCOMETER DEV NAME(LOC) 6N.1; GLUCOSE,POINT OF CARE 146 MG/DL (70-110)
[2019-11-20 07:28] VITALS: BP 158/76
[2019-11-20] MEDS: NYSTATIN 15 GM POWDER BOTTLE TP SCH ×2 (09:00→20:49)
[2019-11-20] MEDS: FAMOTIDINE 20 MG TABLET PO SCH ×2 (10:17→20:48)
[2019-11-20] MEDS: MAGNESIUM CHLORIDE 64 MG ER TABLET PO SCH ×2 (10:17→20:48)
[2019-11-20] MEDS: SitaGLIPtin PHOSPHATE 50 MG TABLET PO SCH (10:18)
[2019-11-20] MEDS: METOPROLOL TARTRATE 25 MG TABLET PO SCH ×2 (10:18→20:48)
[2019-11-20] MEDS: ISOSORBIDE MONONITRATE 60 MG ER TABLET PO SCH (10:18)
[2019-11-20] MEDS: TICAGRELOR 90 MG TABLET PO SCH ×2 (10:18→20:48)
[2019-11-20] MEDS: LACTOBAC ACID/BULG/BIFID/THERM TABLET PO SCH ×2 (10:18→20:48)
[2019-11-20] MEDS: PSYLLIUM SEED ORANGE SF 5.8 GM/PACKET PO SCH (10:18)
[2019-11-20] MEDS: LISINOPRIL 20 MG TABLET PO SCH (10:18)
[2019-11-20] MEDS: MULTIVITAMINS WITH MINERALS, THERAPEUTIC TABLET PO SCH (10:18)
[2019-11-20] MEDS: ENOXAPARIN SODIUM 40 MG/0.4 ML PF SYRINGE SQ SCH (10:19)
[2019-11-20] MEDS: INSULIN LISPRO 100 UNITS/ML SQ PRN ×2 (10:39→20:55)
[2019-11-20 12:42] LABS: GLUCOMETER DEV NAME(LOC) 4E.2; GLUCOSE,POINT OF CARE 131 MG/DL (70-110)
[2019-11-20 15:42] VITALS: BP 145/87
[2019-11-20 18:14] LABS: GLUCOMETER DEV NAME(LOC) 4E.2; GLUCOSE,POINT OF CARE 102 MG/DL (70-110)
[2019-11-20 20:10] VITALS: BP 150/70
[2019-11-20] MEDS: ATORVASTATIN CALCIUM 40 MG TABLET PO SCH (20:58)
[2019-11-20 21:17] LABS: GLUCOMETER DEV NAME(LOC) 4E.2; GLUCOSE,POINT OF CARE 193 MG/DL (70-110)
[2019-11-21 05:00] VITALS: BP 127/61
[2019-11-21 05:46] LABS: GLUCOMETER DEV NAME(LOC) 6N.1; GLUCOSE,POINT OF CARE 144 MG/DL (70-110)
[2019-11-21 08:00] VITALS: BP 126/63
[2019-11-21] MEDS: ENOXAPARIN SODIUM 40 MG/0.4 ML PF SYRINGE SQ SCH ×2 (08:08→08:15)
[2019-11-21] MEDS: LACTOBAC ACID/BULG/BIFID/THERM TABLET PO SCH ×2 (08:09→20:24)
[2019-11-21] MEDS: MAGNESIUM CHLORIDE 64 MG ER TABLET PO SCH (08:09)
[2019-11-21] MEDS: PSYLLIUM SEED ORANGE SF 5.8 GM/PACKET PO SCH (08:09)
[2019-11-21] MEDS: MULTIVITAMINS WITH MINERALS, THERAPEUTIC TABLET PO SCH (08:10)
[2019-11-21] MEDS: FAMOTIDINE 20 MG TABLET PO SCH ×2 (08:10→20:24)
[2019-11-21] MEDS: LISINOPRIL 20 MG TABLET PO SCH (08:10)
[2019-11-21] MEDS: TICAGRELOR 90 MG TABLET PO SCH ×2 (08:10→20:24)
[2019-11-21] MEDS: METOPROLOL TARTRATE 25 MG TABLET PO SCH ×2 (08:11→20:24)
[2019-11-21] MEDS: ISOSORBIDE MONONITRATE 60 MG ER TABLET PO SCH (08:11)
[2019-11-21] MEDS: NYSTATIN 15 GM POWDER BOTTLE TP SCH ×2 (08:11→20:37)
[2019-11-21] MEDS: SitaGLIPtin PHOSPHATE 50 MG TABLET PO SCH (08:11)
[2019-11-21] MEDS: INSULIN LISPRO 100 UNITS/ML SQ PRN ×3 (08:12→20:27)
[2019-11-21 13:56] LABS: GLUCOMETER DEV NAME(LOC) 6N.1; GLUCOSE,POINT OF CARE 113 MG/DL (70-110)
[2019-11-21 16:00] VITALS: BP 148/68
[2019-11-21 17:48] LABS: GLUCOMETER DEV NAME(LOC) 6N.1; GLUCOSE,POINT OF CARE 144 MG/DL (70-110)
[2019-11-21 20:15] VITALS: BP 151/79
[2019-11-21 20:51] LABS: GLUCOMETER DEV NAME(LOC) 6N.1; GLUCOSE,POINT OF CARE 166 MG/DL (70-110)
[2019-11-22 04:45] VITALS: BP 153/68
[2019-11-22 05:55] LABS: GLUCOMETER DEV NAME(LOC) 6N.1; GLUCOSE,POINT OF CARE 128 MG/DL (70-110)
[2019-11-22 07:30] VITALS: BP 150/67
[2019-11-22] MEDS: PSYLLIUM SEED ORANGE SF 5.8 GM/PACKET PO SCH (07:57)
[2019-11-22] MEDS: METOPROLOL TARTRATE 25 MG TABLET PO SCH ×2 (07:57→20:47)
[2019-11-22] MEDS: LACTOBAC ACID/BULG/BIFID/THERM TABLET PO SCH ×2 (07:57→20:47)
[2019-11-22] MEDS: FAMOTIDINE 20 MG TABLET PO SCH ×2 (07:57→20:47)
[2019-11-22] MEDS: ENOXAPARIN SODIUM 40 MG/0.4 ML PF SYRINGE SQ SCH (07:57)
[2019-11-22] MEDS: NYSTATIN 15 GM POWDER BOTTLE TP SCH ×2 (07:58→20:50)
[2019-11-22] MEDS: ISOSORBIDE MONONITRATE 60 MG ER TABLET PO SCH (07:58)
[2019-11-22] MEDS: MULTIVITAMINS WITH MINERALS, THERAPEUTIC TABLET PO SCH (07:58)
[2019-11-22] MEDS: LISINOPRIL 20 MG TABLET PO SCH (07:58)
[2019-11-22] MEDS: SitaGLIPtin PHOSPHATE 50 MG TABLET PO SCH (07:58)
[2019-11-22] MEDS: TICAGRELOR 90 MG TABLET PO SCH ×2 (07:58→20:47)
[2019-11-22 12:10] LABS: GLUCOMETER DEV NAME(LOC) 6N.1; GLUCOSE,POINT OF CARE 141 MG/DL (70-110)
[2019-11-22] MEDS: INSULIN LISPRO 100 UNITS/ML SQ PRN ×2 (12:47→21:21)
[2019-11-22 16:35] VITALS: BP 140/62
[2019-11-22 17:18] LABS: GLUCOMETER DEV NAME(LOC) 6N.1; GLUCOSE,POINT OF CARE 99 MG/DL (70-110)
[2019-11-22 20:51] VITALS: BP 129/54
[2019-11-22 21:28] LABS: GLUCOMETER DEV NAME(LOC) 6N.1; GLUCOSE,POINT OF CARE 157 MG/DL (70-110)
[2019-11-22 23:19] VITALS: BP 147/57
[2019-11-23] MEDS ORDERED: ACID1TAB13 PO (03:23)
[2019-11-23] MEDS ORDERED: METO25 PO (03:24)
[2019-11-23] MEDS ORDERED: FAMO20 PO (03:26)
[2019-11-23] MEDS ORDERED: MULT-1239 PO (03:26)
[2019-11-23] MEDS ORDERED: SITA50 PO (03:26)
[2019-11-23 05:54] LABS: GLUCOMETER DEV NAME(LOC) 6N.1; GLUCOSE,POINT OF CARE 146 MG/DL (70-110)
[2019-11-23 07:26] VITALS: BP 133/53
[2019-11-23 08:27] LABS: ANION GAP 10 mmol/L (8-16); CARBON DIOXIDE 24 mmol/L (22-29); CHLORIDE 109 mmol/L (98-107); GLUCOSE,RANDOM 135 mg/dL (70-110); POTASSIUM 4.2 mmol/L (3.5-5.1); SODIUM SERUM 143 mmol/L (136-145); UREA NITROGEN, BLOOD 24 mg/dL (7-18)
[2019-11-23 08:28] LABS: CALCIUM, TOTAL 9.4 mg/dL (8.8-10.5); GLOMERULAR FILTR. RATE CALC > 60 mL/min (>60)
[2019-11-23] MEDS: LACTOBAC ACID/BULG/BIFID/THERM TABLET PO SCH (08:31)
[2019-11-23] MEDS: TICAGRELOR 90 MG TABLET PO SCH (08:32)
[2019-11-23] MEDS: SitaGLIPtin PHOSPHATE 50 MG TABLET PO SCH (08:32)
[2019-11-23] MEDS: MULTIVITAMINS WITH MINERALS, THERAPEUTIC TABLET PO SCH (08:32)
[2019-11-23] MEDS: PSYLLIUM SEED ORANGE SF 5.8 GM/PACKET PO SCH (08:32)
[2019-11-23] MEDS: FAMOTIDINE 20 MG TABLET PO SCH (08:32)
[2019-11-23] MEDS: METOPROLOL TARTRATE 25 MG TABLET PO SCH (08:32)
[2019-11-23] MEDS: LISINOPRIL 20 MG TABLET PO SCH (08:33)
[2019-11-23] MEDS: NYSTATIN 15 GM POWDER BOTTLE TP SCH (08:33)
[2019-11-23] MEDS: ENOXAPARIN SODIUM 40 MG/0.4 ML PF SYRINGE SQ SCH (08:33)
[2019-11-23] MEDS: INSULIN LISPRO 100 UNITS/ML SQ PRN (08:35)
[2019-11-23] MEDS: ISOSORBIDE MONONITRATE 60 MG ER TABLET PO SCH (09:26)
[2019-11-23] MEDS ORDERED: METF-960 PO (09:50)
[2019-11-23] MEDS ORDERED: ATOR40TA71 PO (09:52)
[2019-11-23 11:53] LABS: GLUCOMETER DEV NAME(LOC) 6N.1; GLUCOSE,POINT OF CARE 128 MG/DL (70-110)
[2019-11-23 13:10] LABS: GLUCOMETER DEV NAME(LOC) 6N.1; GLUCOSE,POINT OF CARE 96 MG/DL (70-110)
== END 2019-11-23 14:05 | disposition home health service (06) | DRG 56 ==
LOC: UNDOADMIN 22:02 → 4E 22:02 → 2WR 11-18 10:08 → 4E 11-18 10:08
PROVIDERS: ADMIT Physical Medicine & Rehabilitation; ATTEND Physical Medicine & Rehabilitation
PROC: 5A09357 Assistance with Respiratory Ventilation, Less than 24 Consecutive Hours, Continuous Positive Airway Pressure (ICD-10-PCS; principal; 2019-11-11)
PROC: 5A09357 Assistance with Respiratory Ventilation, Less than 24 Consecutive Hours, Continuous Positive Airway Pressure (ICD-10-PCS; 2019-11-12)
PROC: 5A09357 Assistance with Respiratory Ventilation, Less than 24 Consecutive Hours, Continuous Positive Airway Pressure (ICD-10-PCS; 2019-11-14)
PROC: 5A09357 Assistance with Respiratory Ventilation, Less than 24 Consecutive Hours, Continuous Positive Airway Pressure (ICD-10-PCS; 2019-11-15)
PROC: 5A09357 Assistance with Respiratory Ventilation, Less than 24 Consecutive Hours, Continuous Positive Airway Pressure (ICD-10-PCS; 2019-11-16)
PROC: 5A09357 Assistance with Respiratory Ventilation, Less than 24 Consecutive Hours, Continuous Positive Airway Pressure (ICD-10-PCS; 2019-11-17)
PROC: 5A09357 Assistance with Respiratory Ventilation, Less than 24 Consecutive Hours, Continuous Positive Airway Pressure (ICD-10-PCS; 2019-11-18)
PROC: 5A09357 Assistance with Respiratory Ventilation, Less than 24 Consecutive Hours, Continuous Positive Airway Pressure (ICD-10-PCS; 2019-11-19)
PROC: 5A09357 Assistance with Respiratory Ventilation, Less than 24 Consecutive Hours, Continuous Positive Airway Pressure (ICD-10-PCS; 2019-11-21)
PROC: 5A09357 Assistance with Respiratory Ventilation, Less than 24 Consecutive Hours, Continuous Positive Airway Pressure (ICD-10-PCS; 2019-11-22)
DX: I69.354 Hemiplegia and hemiparesis following cerebral infarction affecting left non-dominant side (principal); I63.9 Cerebral infarction, unspecified; R13.10 Dysphagia, unspecified; E11.9 Type 2 diabetes mellitus without complications; I25.10 Atherosclerotic heart disease of native coronary artery without angina pectoris; E66.9 Obesity, unspecified; E78.5 Hyperlipidemia, unspecified; E78.00 Pure hypercholesterolemia, unspecified; G47.33 Obstructive sleep apnea (adult) (pediatric); M19.90 Unspecified osteoarthritis, unspecified site; I11.0 Hypertensive heart disease with heart failure; I50.9 Heart failure, unspecified; G31.84 Mild cognitive impairment of uncertain or unknown etiology; Z03.818 Encounter for observation for suspected exposure to other biological agents ruled out; D64.9 Anemia, unspecified; E86.0 Dehydration; N31.9 Neuromuscular dysfunction of bladder, unspecified
CPT/HCPCS: 74018; 83735; 84100; 87081; 87324; 87449; 92507; 92610; 93970; 94660; 97110; 97112; 97116; 97162; 97163; 97166; 97530; 97535; 99366; 99368; G0378; J1650